=== PATIENT | male | born 1940 | race Caucasian/White ===

== ENCOUNTER 2023-08-01 13:25 | Emergency (ER) | payer MEDICARE, SELFPAY ==
[2023-08-01] VITALS (15 sets, daily range): BP systolic 80–134; BP diastolic 49–74; PULSE 74–103; RESP 15–24; TEMP 36.6; O2SAT 96–100
--- NOTE | 2023-08-01 13:30 | DI.RAD.S_ITS ---
PROCEDURE: XR CHEST 1V INDICATIONS: syncope TECHNIQUE: One view of the chest was acquired. COMPARISON: None. FINDINGS: Surgical changes and devices: Right upper extremity PICC terminates in the upper right atrium. Lungs and pleura: Lungs are clear. No pleural effusions or pneumothorax. Mediastinum: Mediastinal contours appear normal. Heart size is normal. Bones and chest wall: No suspicious bony lesions. No displaced rib fracture. Overlying soft tissues appear unremarkable. IMPRESSION: No acute cardiopulmonary process. Dictated by: Kitty Smith M.D. on 08/01/2023 at 13:58 Approved by: Kitty Smith M.D. on 08/01/2023 at 14:02
--- NOTE | 2023-08-01 13:30 | ED.GENADULT ---
HPI - General Adult General Chief complaint: Syncope Stated complaint: Syncopal episode Time Seen by Provider: 08/01/23 13:29 History of Present Illness HPI narrative: 82-year-old male with history of congestive heart failure presents by EMS from his assisted living facility for several episodes of near-syncope and lightheadedness. Symptoms started 1 week ago after starting a new medication, spironolactone. Patient had another episode this afternoon and EMS was called. EMS noted positive orthostatic vital signs. On arrival patient had been declining in the ambulance stretcher. He was asymptomatic on presentation. Review of Systems Review of Systems Narrative: Negative except as noted above Exam Initial Vital Signs Initial Vital Signs: Vital Signs Blood Pressure 124/70 08/01/23 13:30 Const: Awake, alert, frail, underweight Cardiac: regular rate, regular rhythm RESP: unlabored, clear bilaterally, no wheezing GI: Atraumatic, soft, nontender MSK: Atraumatic, full range of motion, pulses equal Skin: Warm, Dry, intact, no rashes Neuro: AO x3, CN II-XII grossly intact, moves all extremities Course Orders Ordered: Discontinued Medications Sodium Chloride (Normal Saline 0.9%) 1,000 mls @ 1,000 mls/hr IV BOLUS ONE Stop: 08/01/23 14:29 Last Infusion: 08/01/23 15:18 Dose: Infused Documented By: Admin: 08/01/23 13:41 Dose: 1,000 mls/hr Documented By: MODESTA Sodium Chloride (Normal Saline 0.9%) 500 mls @ 1,000 mls/hr IV BOLUS ONE Stop: 08/01/23 15:55 Last Infusion: 08/01/23 16:21 Dose: Infused Documented By: Admin: 08/01/23 15:27 Dose: 1,000 mls/hr Documented By: MODESTA Vital Signs Vital signs: Vital Signs - 8 hr 08/01/23 13:30 08/01/23 13:31 08/01/23 13:31 Temperature 98 F Pulse Rate 94 H 96 H Pulse Rate [Orthostatic Lying] Pulse Rate [Orthostatic Sitting] Pulse Rate [Orthostatic Standing] Respiratory Rate 17 24 Blood Pressure 124/70 124/74 Blood Pressure [Orthostatic Lying] Blood Pressure [Orthostatic Sitting] Blood Pressure [Orthostatic Standing] Pulse Oximetry 99 100 Oxygen Delivery Method Room Air 08/01/23 14:00 08/01/23 14:00 08/01/23 14:30 Temperature Pulse Rate 90 91 H Pulse Rate [Orthostatic Lying] Pulse Rate [Orthostatic Sitting] Pulse Rate [Orthostatic Standing] Respiratory Rate 20 23 Blood Pressure 114/55 L Blood Pressure [Orthostatic Lying] Blood Pressure [Orthostatic Sitting] Blood Pressure [Orthostatic Standing] Pulse Oximetry 100 100 Oxygen Delivery Method 08/01/23 14:30 08/01/23 15:00 08/01/23 15:00 Temperature Pulse Rate 81 Pulse Rate [Orthostatic Lying] Pulse Rate [Orthostatic Sitting] Pulse Rate [Orthostatic Standing] Respiratory Rate 17 Blood Pressure 134/69 131/65 Blood Pressure [Orthostatic Lying] Blood Pressure [Orthostatic Sitting] Blood Pressure [Orthostatic Standing] Pulse Oximetry 99 Oxygen Delivery Method 08/01/23 15:09 08/01/23 15:09 08/01/23 15:10 Temperature Pulse Rate 82 81 Pulse Rate [Orthostatic Lying] Pulse Rate [Orthostatic Sitting] Pulse Rate [Orthostatic Standing] Respiratory Rate 21 20 Blood Pressure 128/65 Blood Pressure [Orthostatic Lying] Blood Pressure [Orthostatic Sitting] Blood Pressure [Orthostatic Standing] Pulse Oximetry 100 100 Oxygen Delivery Method 08/01/23 15:10 08/01/23 15:14 08/01/23 15:14 Temperature Pulse Rate 87 Pulse Rate [Orthostatic Lying] Pulse Rate [Orthostatic Sitting] Pulse Rate [Orthostatic Standing] Respiratory Rate 19 Blood Pressure 127/65 83/52 L Blood Pressure [Orthostatic Lying] Blood Pressure [Orthostatic Sitting] Blood Pressure [Orthostatic Standing] Pulse Oximetry Oxygen Delivery Method 08/01/23 15:16 08/01/23 15:16 08/01/23 15:20 Temperature Pulse Rate 101 H Pulse Rate [Orthostatic Lying] 81 Pulse Rate [Orthostatic Sitting] 87 Pulse Rate [Orthostatic Standing] 101 H Respiratory Rate 21 Blood Pressure 80/49 L Blood Pressure [Orthostatic Lying] 127/65 Blood Pressure [Orthostatic Sitting] 83/52 L Blood Pressure [Orthostatic Standing] 80/49 L Pulse Oximetry Oxygen Delivery Method 08/01/23 15:30 08/01/23 15:30 08/01/23 16:00 Temperature Pulse Rate 78 74 Pulse Rate [Orthostatic Lying] Pulse Rate [Orthostatic Sitting] Pulse Rate [Orthostatic Standing] Respiratory Rate 17 15 Blood Pressure 132/61 Blood Pressure [Orthostatic Lying] Blood Pressure [Orthostatic Sitting] Blood Pressure [Orthostatic Standing] Pulse Oximetry 96 96 Oxygen Delivery Method 08/01/23 16:00 08/01/23 16:19 08/01/23 16:19 Temperature Pulse Rate 103 H Pulse Rate [Orthostatic Lying] Pulse Rate [Orthostatic Sitting] Pulse Rate [Orthostatic Standing] Respiratory Rate Blood Pressure 118/56 L 105/55 L Blood Pressure [Orthostatic Lying] Blood Pressure [Orthostatic Sitting] Blood Pressure [Orthostatic Standing] Pulse Oximetry 99 Oxygen Delivery Method Medical Decision Making Differential Diagnosis Differential Diagnosis: Vasovagal syncope, orthostatic syncope, syncope Lab Data 08/01/23 13:50 08/01/23 13:50 Labs: Lab Results 08/01/23 Range/Units 13:50 WBC 6.7 (4.5-11.0) X10^3/uL RBC 3.55 L (4.5-5.9) X10^6/uL Hgb 11.1 L (13.5-17.5) g/dL Hct 32.3 L (41-53) % MCV 91.1 (80-100) fL MCH 31.3 (26-34) PG MCHC 34.3 (30-36) % RDW 13.4 (11.6-14.8) % Plt Count 219 (150-400) X10^3/uL Neut % (Auto) 54.7 (50-75) % Lymph % (Auto) 35.0 (25-40) % [place] % (Auto) 9.1 (3-14) % Eos % (Auto) 0.7 L (2-4) % Baso % (Auto) 0.5 (0-2) % Neut # (Auto) 3700 (4458-0641) /uL Lymph # (Auto) 2400 (8509-1942) /uL [place] # (Auto) 600 (0-900) /uL Eos # (Auto) 0 (0-450) /uL Baso # (Auto) 0 (0-100) /uL PT 12.4 (9.4-12.5) SECONDS INR 1.1 (0.9-1.3) Sodium 133 L (137-145) mmol/L Potassium 4.2 (3.4-5.1) mmol/L Chloride 103 (98-107) mmol/L Carbon Dioxide 25 (22-32) mmol/L BUN 29 H (9-20) mg/dL Creatinine 1.02 (0.66-1.25) mg/dL Estimated GFR > 60 (>60) mL/min BUN/Creatinine Ratio 28.4 H (6-22) Glucose 78 L (80-110) mg/dL Calcium 8.6 (8.4-10.2) mg/dL Total Bilirubin 0.4 (0.2-1.3) mg/dL AST 24 (17-59) IU/L ALT 9 (<50) IU/L Alkaline Phosphatase 91 (38-126) U/L Total Creatine Kinase 21 L (55-170) U/L Troponin I < 0.012 (0.01-0.034) ng/mL Total Protein 6.6 (6.3-8.2) g/dL Albumin 2.9 L (3.5-5.0) g/dL Globulin 3.7 (1.7-4.1) g/dL Albumin/Globulin Ratio 0.8 L (1.0-2.8) MDM Narrative Medical decision making narrative: Multiple episodes of near-syncope after starting new diuretic medication. Patient appears very frail and slightly volume depleted. Positive orthostatic vital signs both by EMS and here in the emergency department. EKG is sinus rhythm, no prolonged QT or heart block. We will order small bolus of fluids, lab work, chest x-ray. Patient denies hitting his head during these episodes. Laboratory work is reviewed, electrolytes within normal limits, despite being on spironolactone potassium is within normal limits. Chest x-ray negative for acute process. Patient reports feeling better after receiving fluids. Repeat Orthostatic vital signs improved and patient is ambulatory with a walker without difficulty. Patient counseled to discuss either decreasing his spironolactone dose or increasing his daily fluid limit. and patient in agreement at this time. Discharge Plan Departure Patient Disposition: Home Clinical Impression: Orthostatic dizziness Instructions: DI for Syncope in Adults (Fainting) Activity Restrictions/Additional Instructions: TALK TO YOUR DOCTOR ABOUT EITHER DECREASING YOUR SPIRONOLACTONE OR INCREASING HER FLUID INTAKE. IF YOU FEEL DIZZY BE VERY CAREFUL WHEN CHANGING POSITIONS TO AVOID PASSING OUT OR FALLING. Referrals: Akira Somers, [Primary Care Provider] - Stand Alone Forms: Patient Portal/API
[2023-08-01] MEDS: SODIUM CHLORIDE 0.9% 1,000 ML 1000 ML IV (13:41)
[2023-08-01 13:56] LABS: Add Manual Diff / Slide Review NO; Basophils Absolute Auto 0 /uL (0-100); Basophils Percent Auto 0.5 % (0-2); Eosinophils Absolute Auto 0 /uL (0-450); Eosinophils Percent Auto 0.7 % (2-4); Hematocrit 32.3 % (41-53); Hemoglobin 11.1 g/dL (13.5-17.5); Lymphocytes Absolute Auto 2400 /uL (1100-4500); Mean Corpuscular HGB Conc 34.3 % (30-36); Mean Corpuscular Hemoglobin 31.3 PG (26-34); Mean Corpuscular Volume 91.1 fL (80-100); Monocytes Absolute Auto 600 /uL (0-900); Monocytes Percent Auto 9.1 % (3-14); Neutrophils Absolute Auto 3700 /uL (1500-7000); Neutrophils Percent Auto 54.7 % (50-75); Platelet Count 219 X10^3/uL (150-400); Red Blood Cell Count 3.55 X10^6/uL (4.5-5.9); Red Cell Distribution Width 13.4 % (11.6-14.8); White Blood Cell Count 6.7 X10^3/uL (4.5-11.0)
[2023-08-01 14:07] LABS: INR 1.1 (0.9-1.3); Prothrombin Time 12.4 SECONDS (9.4-12.5)
[2023-08-01 14:11] LABS: Alanine Aminotransferase 9 IU/L (<50); Albumin 2.9 g/dL (3.5-5.0); Albumin Globulin Ratio 0.8 (1.0-2.8); Alkaline Phosphatase 91 U/L (38-126); Aspartate Aminotransferase 24 IU/L (17-59); BUN Creatinine Ratio 28.4 (6-22); Bilirubin Total 0.4 mg/dL (0.2-1.3); Blood Urea Nitrogen 29 mg/dL (9-20); Calcium 8.6 mg/dL (8.4-10.2); Carbon Dioxide 25 mmol/L (22-32); Chloride 103 mmol/L (98-107); Creatine Kinase 21 U/L (55-170); Estimated Glomerular Filt Rate > 60 mL/min (>60); Globulin 3.7 g/dL (1.7-4.1); Glucose 78 mg/dL (80-110); HEMOLYSIS < 15 (0-50); Potassium 4.2 mmol/L (3.4-5.1); Sodium 133 mmol/L (137-145); Total Protein 6.6 g/dL (6.3-8.2)
[2023-08-01 14:23] LABS: Troponin I < 0.012 ng/mL (0.01-0.034)
[2023-08-01] MEDS: SODIUM CHLORIDE 0.9% 500 ML 1000 ML IV (15:27)
== END 2023-08-01 17:35 | disposition home or self-care (01) ==
PROVIDERS: Emergency Provider Emergency Medicine; PCP Family Medicine
DX: I95.1 Orthostatic hypotension (principal); R07.9 Chest pain, unspecified
CPT/HCPCS: 36415; 71045; 80053; 82550; 84484; 85025; 85610; 93005; 93010; 96360; 96361; 99283; 99284

== ENCOUNTER → 2023-10-15 14:18 | Outpatient (CLI) | payer MEDICARE, SELFPAY | PROVIDERS: PCP Family Medicine; Visit Provider Specialist | DX: R33.9 Retention of urine, unspecified (principal) | CPT/HCPCS: 81002; 87086 ==

== ENCOUNTER → 2023-11-05 14:48 | Outpatient (CLI) | payer MEDICARE, SELFPAY | PROVIDERS: PCP Family Medicine; Visit Provider Specialist | DX: R33.9 Retention of urine, unspecified (principal) | CPT/HCPCS: 87086 ==

== ENCOUNTER → 2024-04-02 13:35 | Outpatient (CLI) | payer MEDICARE, SELFPAY | PROVIDERS: PCP Family Medicine; Visit Provider Urology | DX: N40.1 Benign prostatic hyperplasia with lower urinary tract symptoms (principal); N13.8 Other obstructive and reflux uropathy | CPT/HCPCS: 87077; 87086 ==

== ENCOUNTER → 2024-05-21 07:40 | Outpatient (CLI) | payer MEDICARE, SELFPAY | PROVIDERS: PCP Family Medicine; Visit Provider Urology | DX: N40.1 Benign prostatic hyperplasia with lower urinary tract symptoms (principal); N13.8 Other obstructive and reflux uropathy; R33.9 Retention of urine, unspecified | CPT/HCPCS: 87077; 87086; 87147; 87186 ==

== ENCOUNTER → 2024-10-21 15:43 | Outpatient (CLI) | payer MEDICARE, SELFPAY | PROVIDERS: PCP Family Medicine; Visit Provider Urology | DX: N40.1 Benign prostatic hyperplasia with lower urinary tract symptoms (principal); N13.8 Other obstructive and reflux uropathy; R33.9 Retention of urine, unspecified; Z78.9 Other specified health status | CPT/HCPCS: 87086; 99213 ==